=== PATIENT | female | born 1970 | race Caucasian/White ===

== ENCOUNTER → 2024-01-13 11:10 | Outpatient (REF) | payer OTHER, SELFPAY | LOC: HWWDC 11:10 | PROVIDERS: ATTENDING PHYSICIAN Obstetrics & Gynecology; FAMILY PHYSICIAN Family Medicine | DX: Z12.31 Encounter for screening mammogram for malignant neoplasm of breast (principal) | CPT/HCPCS: 77063; 77067 ==

== ENCOUNTER → 2024-05-24 10:32 | Outpatient (REF) | payer OTHER, SELFPAY | LOC: HWRAD 10:32 | PROVIDERS: ATTENDING PHYSICIAN Family Medicine | DX: Z78.0 Asymptomatic menopausal state (principal); R29.890 Loss of height | CPT/HCPCS: 77080 ==

== ENCOUNTER → 2025-03-04 14:41 | Outpatient (REF) | payer OTHER, SELFPAY | LOC: HWWDC 14:41 | PROVIDERS: ATTENDING PHYSICIAN Obstetrics & Gynecology; FAMILY PHYSICIAN Physician Assistant Medical | DX: Z12.31 Encounter for screening mammogram for malignant neoplasm of breast (principal) | CPT/HCPCS: 77063; 77067 ==